=== PATIENT | male | born 1950 | race Hispanic/Latino ===

== ENCOUNTER 2018-01-06 07:27 | Day surgery (SDC) | payer BC, MEDICARE ==
[2016-02-17 14:35] VITALS: BMI 29.4
[2018-01-06] MEDS ORDERED: Propofol 10 mg/ml Inj (20 ML) ONE (09:42)
[2018-01-06] MEDS ORDERED: Sodium Chloride 0.9% 1,000 ML IV SCH (10:30)
[2018-01-06 10:35] VITALS: O2SAT 99
[2018-01-06 11:13] VITALS: BP 129/70; PULSE 51; RESP 16; TEMP 97.8
== END 2018-01-06 11:59 | disposition home or self-care (01) ==
LOC: ENDO 07:27
PROVIDERS: ATTEND Internal Medicine Gastroenterology
DX: K21.9 Gastro-esophageal reflux disease without esophagitis (principal); K29.50 Unspecified chronic gastritis without bleeding; Z85.01 Personal history of malignant neoplasm of esophagus; Z90.49 Acquired absence of other specified parts of digestive tract
CPT/HCPCS: 43239; 88305; 88312; J2001; J2704; J7040 ×2

== ENCOUNTER 2018-10-05 07:54 | Day surgery (SDC) | payer MEDICARE ==
[2018-10-04 14:35] VITALS: BMI 27.9
[2018-10-05 08:38] LABS: BASO # 0.07 K/mm3 (0.0-2.0); BASO % 1.1 % (0.0-3.0); EOS # 0.1 (0.0-0.7); EOS % 2.1 % (1.5-5.0); GRAN # 3.35 (1.4-6.5); GRAN % 54.5 % (50.0-68.0); HEMOGLOBIN 14.4 g/dL (14.0-18.0); LYMPH # 2.2 (1.2-3.4); LYMPH % 35.8 % (22.0-35.0); MEAN CELL VOLUME 100.2 fl (80.0-105.0); MEAN CORPUSCULAR HEMOGLOBIN 34.2 pg (25.0-35.0); MEAN CORPUSCULAR HGB CONC 34.1 g/dl (31.0-37.0); MEAN PLATELET VOLUME 9.9 fl (7.0-11.0); MONO # 0.4 (0.1-0.6); MONO % 6.5 % (1.0-6.0); RBC 4.21 10^6/uL (3.5-6.1); WHITE BLOOD COUNT 6.2 10^3/uL (4.5-11.0)
[2018-10-05 08:42] LABS: BLOOD UREA NITROGEN 8 mg/dL (7-21); CALCIUM 9.2 mg/dL (8.4-10.5); GFR NON-AFRICAN AMERICAN > 60
[2018-10-05 08:43] LABS: INR 0.93; PARTIAL THROMBOPLASTIN TIME 25.3 Seconds (25.1-36.5); PROTHROMBIN TIME 10.7 SECONDS (9.4-12.5)
[2018-10-05 09:34] VITALS: RESP 18
[2018-10-05] MEDS ORDERED: Midazolam 2 MG/2 ML VIAL ONE (10:13)
[2018-10-05] MEDS ORDERED: Lidocaine 1% Inj (20ml) ONE (10:13)
[2018-10-05] MEDS ORDERED: Midazolam 2 MG/2 ML VIAL IVP ONE (10:45)
[2018-10-05] MEDS ORDERED: Oxycodone/Acetaminophen 5/325 mg Tab PO PRN (10:55)
[2018-10-05] MEDS ORDERED: Sodium Chloride 0.45% 1,000 ML IV SCH (11:00)
[2018-10-05 11:15] VITALS: TEMP 98.4
[2018-10-05 11:57] VITALS: BP 113/66; PULSE 86; O2SAT 97
--- NOTE | 2018-10-05 13:24 | RAD ---
Date of service: 10/05/2018 HISTORY: lt lung bx COMPARISON: No prior. FINDINGS: LUNGS: No active pulmonary disease. PLEURA: No significant pleural effusion identified, no pneumothorax apparent. CARDIOVASCULAR: No aortic atherosclerotic calcification present. Normal cardiac size. No pulmonary vascular congestion. OSSEOUS STRUCTURES: No significant abnormalities. VISUALIZED UPPER ABDOMEN: Normal. OTHER FINDINGS: None. IMPRESSION: No active disease.
--- NOTE | 2018-10-05 19:26 | CT ---
PROCEDURE: CT guided left upper lobe biopsy. HISTORY: Distant history esophageal CA. New 2 cm left upper lobe lung nodule. Evaluate for lung CA versus Mets. PHYSICIAN(S): Clifton Vidal MD. TECHNIQUE: The relative risks and indications of the procedure were explained to the patient and consent obtained. The patient was placed supine on the CT scanner and preliminary images through the upper lungs obtained. Conscious sedation and monitoring were provided throughout the procedure by a nurse. There is a 2 cm noncalcified mass in the left upper lobe laterally.. A left anterior approach was selected and the area prepped and draped in the usual sterile fashion. 1% Xylocaine was used to anesthetize the skin and soft tissues. A 19 gauge guiding needle was advanced into the 2 cm left upper lobe lung mass. Its position was confirmed with CT. Using coaxial technique, multiple core biopsies were obtained. The postprocedure images show no evidence of large pneumothorax or hemorrhage.. IMPRESSION: 1. CT-guided left upper lobe lung biopsy as described above.
== END 2018-10-05 13:45 | disposition home or self-care (01) ==
LOC: SDS 07:54
PROVIDERS: ATTEND Radiology Vascular & Interventional Radiology
DX: C34.12 Malignant neoplasm of upper lobe, left bronchus or lung (principal); I10 Essential (primary) hypertension; F17.200 Nicotine dependence, unspecified, uncomplicated; Z85.01 Personal history of malignant neoplasm of esophagus
CPT/HCPCS: 32405; 36415; 71045; 77012; 80048; 85025; 85610; 85730; 88305; J2250; J2405; J3010; J7030

== ENCOUNTER 2018-12-21 08:12 | Outpatient (CLI) | payer MEDICARE, BC | END 2018-12-21 08:13 | disposition home or self-care (01) | LOC: RAD 08:12 | DX: R91.1 Solitary pulmonary nodule (principal); C34.12 Malignant neoplasm of upper lobe, left bronchus or lung ==